=== PATIENT | male | born 1960 | race Hispanic/Latino ===

== ENCOUNTER 2016-03-31 15:52 | Emergency (ER) | payer MEDICARE ==
[2016-03-31 21:38] VITALS: BP 118/83
--- NOTE | 2016-03-31 22:09 | Emergency Department Report ---
HPI - General Chief Complaint: Upper Respiratory Infection Time Seen by Provider: 03/31/16 21:37 - HPI HPI: Patient here with a caregiver from [facility] who reports the patient with cold symptoms 3 days. Denies patient with fever but reports patient with cough. He said that she was exposed to strep and she wants to make sure patient does not have strep throat. Patient is mentally challenged but he denies any sore throat. Has any chest pain or shortness of breath. Pt has COPD and is on medication. Patient lives and [facility] with other residents have similar symptoms. ED Past Medical Hx - Past Medical History Previous Medical History?: Yes Hx Psychiatric Treatment: Yes (Schizophrenia) Hx Asthma: Yes Hx COPD: Yes Additional medical history: MR - Surgical History Past Surgical History?: No Additional Surgical History: DENIES - Family History Family history: no significant - Social History Smoking Status: Never Smoker Substance Use Type: None - Medications Home Medications: Home Medications Medication Instructions Recorded Confirmed Last Taken Type HYDROcodone/APAP 5-325 [[place] 1 each PO Q6HR PRN #14 tablet 09/13/14 Unknown Rx 5-325 mg TAB] ALBUTEROL Inhaler [ProAir HFA 2 puff INHALATION Q6H PRN #1 inha 09/14/14 Unknown Rx Inhaler] Benztropine [Cogentin] 2 mg PO BID #60 tablet 09/14/14 Unknown Rx Divalproex ER [Depakote ER] 500 mg PO BID #60 tablet 09/14/14 Unknown Rx risperiDONE [RisperDAL] 3 mg PO BID #60 tablet 09/14/14 Unknown Rx Ciprofloxacin HCl [Ciprofloxacin 500 mg PO Q12H #20 tab 05/20/15 Unknown Rx TAB] Amoxicillin/K Clav Tab [Augmentin 1 tab PO Q12HR #20 tab 03/31/16 Unknown Rx 875 mg] predniSONE [Deltasone] 20 mg PO QDAY #5 tab 03/31/16 Unknown Rx ED Review of Systems ROS: Stated complaint: COLD Other details as noted in HPI Comment: All other systems reviewed and negative Constitutional: denies: chills, fever Eyes: denies: eye discharge ENT: congestion. denies: ear pain, throat pain Respiratory: cough. denies: orthopnea, shortness of breath, SOB with exertion, SOB at rest, stridor, wheezing Cardiovascular: denies: chest pain, palpitations, edema, syncope Gastrointestinal: denies: abdominal pain, nausea, vomiting, diarrhea Musculoskeletal: denies: back pain, arthralgia Skin: denies: rash Neurological: denies: headache, abnormal gait, vertigo Physical Exam - Physical Exam Vital Signs: Vital Signs 03/31/16 03/31/16 16:38 21:38 Temperature 97.8 F 98.0 F Pulse Rate 102 H 83 Respiratory 16 16 Rate Blood Pressure 108/77 Blood Pressure 118/83 [Right] O2 Sat by Pulse 96 97 Oximetry General: This is a 55-year-old male well-nourished well-developed in no acute distress. Physical Exam: Head: Normocephalic atraumatic Mouth: Moist, no pharyngeal exudate or erythema. Uvula is midline and oral airway is patent. No gingival enlargement or dental tenderness. No facial swelling. No peritonsillar abscesses. Neck: Supple, no C-spine tenderness, no tracheal deviation. Nontender to palpate. no adenopathy Ears: Bilateral TMs congested without erythema .bilateral EAC without any redness swelling or drainage Eyes: Bilateral pupils equal and reactive to light, bilateral EOM intact. Bilateral sclera and conjunctiva without injection. Normal accommodation Nose: Mucosa moist, positive congestion no erythema. Positive clear drainage. maxillary and frontal sinus non-tender to palpate. Lungs: Scattered reasonings throughout all lung brown. Rhonchi at the upper lung brown is cleared with coughing. Normal work of breathing . No retractions or use of accessory muscles. extremity; No CCE. +2 pulses. No neurovascular compromise Cardiovascular: S1-S2, regular rate rhythm. No murmurs. Skin: clean Dry and intact no rash no lesions Psych: Normal mood and behavior ED Course Vital Signs 03/31/16 03/31/16 16:38 21:38 Temperature 97.8 F 98.0 F Pulse Rate 102 H 83 Respiratory 16 16 Rate Blood Pressure 108/77 Blood Pressure 118/83 [Right] O2 Sat by Pulse 96 97 Oximetry - Reevaluation(s) Reevaluation #1: 03/31/16 22:48 Patient given DuoNeb times one nebulizer and Deltasone 60 mg by mouth in emergency room. ED Medical Decision Making - Radiology Data Radiology results: report reviewed Chest x-ray revealed no acute cardiopulmonary processes. - Medical Decision Making ED course: I explained to the caregiver that based on my physical finding patient has mild exacerbation of his COPD. Patient was given Deltasone 60 mg by mouth and DuoNeb times one inhalation in emergency room. Reevaluation, lung sounds better. Patient discharged home in stable condition with caregiver. To continue to take albuterol as needed and prescription given for prednisone. Critical care attestation.: If time is entered above; I have spent that time in minutes in the direct care of this critically ill patient, excluding procedure time. ED Disposition Clinical Impression: COPD with acute exacerbation Disposition: DISCHARGED TO HOME OR SELFCARE Is pt being admited?: No Does the pt Need Aspirin: No Condition: Stable Instructions: Chronic Obstructive Pulmonary Disease (ED) Prescriptions: Amoxicillin/K Clav Tab [Augmentin 875 mg] 1 tab PO Q12HR #20 tab predniSONE [Deltasone] 20 mg PO QDAY #5 tab Referrals: PRIMARY CARE, [Primary Care Provider] - 2-3 Days Forms: Accompanied Note
--- NOTE | 2016-03-31 22:26 | XRay Report ---
FINAL REPORT PROCEDURE: XR CHEST ROUTINE 2V TECHNIQUE: PA and lateral chest radiographs were obtained. CPT 31761 HISTORY: URI, CP COMPARISON: No prior studies are available for comparison. FINDINGS: Heart: Normal. Mediastinum/Vessels: Normal. Lungs/Pleural space: COPD with hyperaeration.. Bony thorax: No acute osseous abnormality. Other: IMPRESSION: No focal infiltrate..
[2016-03-31] MEDS ORDERED: DELTASONE PO ONE (22:45)
[2016-03-31] MEDS ORDERED: DUONEB 0.5 MG-3 MG/3 ML SOLN IH ONE (22:45)
== END 2016-03-31 23:32 | disposition home or self-care (01) ==
LOC: ED 15:52
DX: J44.1 Chronic obstructive pulmonary disease with (acute) exacerbation (principal); F20.9 Schizophrenia, unspecified
CPT/HCPCS: 71020; 94640; 99283; J7512